=== PATIENT | male | born 1935 | race Caucasian/White ===

== ENCOUNTER 2016-07-03 22:11 | Inpatient (IN) | payer MEDICARE, OTHER ==
[~2016-07-03] VITALS: Ht 185.4 cm; Wt 116.4 kg
[~2016-07-03 22:11] MED LIST changes: -ASP81TEC PO; -DICL100G26 TP; -MULT-90 PO
[2016-07-03] MEDS ORDERED: ALBUTEROL/IPRATROPIUM 3MG-0.5MG/3ML (DUONEB) NEB VIAL INH ONE (22:45)
[2016-07-03] MEDS ORDERED: methylPREDNISolone 125 MG (Solu-MEDROL) VIAL IV ONE (22:45)
[2016-07-03 23:22] LABS: MEAN CORPUSCULAR HEMOGLOBIN 28.1 PG (26.0-34.0); MEAN CORPUSCULAR HGB CONC 33.9 g/dL (31.0-37.0); MEAN CORPUSCULAR VOLUME 83 FL (80-100); MEAN PLATELET VOLUME 9.7 FL (6.0-9.5); PLATELET COUNT 207 10^3uL (150-450); WHITE BLOOD COUNT 20.72 10^3uL (4.0-11.0)
[2016-07-03 23:32] LABS: ALBUMIN 3.9 g/dL (3.4-5.0); ANION GAP 15.8 MEQ/L (3-15); CALCULATED IONIZED CALCIUM 4.1 mg/dL (3.8-4.6); TOTAL PROTEIN 6.9 g/dL (6.4-8.5)
[2016-07-04] LABS: BAND NEUTROPHILS % 2 % (0-6); MONOCYTES # 1.2 #; MONOCYTES % 6 % (3-11); SEGMENTED NEUTROPHILS % 87 % (51-67); TOTAL CELLS COUNTED 100
[2016-07-04] MEDS ORDERED: VANCOMYCIN 1,000 MG in SODIUM CHLORIDE 250 ML IV ONE (00:15)
[2016-07-04] MEDS ORDERED: PIPERACILLIN/TAZOBACTAM 3.375 GM in SODIUM CHLORIDE 50 ML IV ONE (00:15)
--- NOTE | 2016-07-04 01:35 | History and Physical (E) ---
History & Physical PCP: Carlos Franz MD CC HAP HPI Mr. Romo is a 80 year old male who presents to the ED by EMS for shortness of air and cough. He has known COPD and is oxygen dependent at home. He was admitted to the hospital on the 06.21 for pneumonia and COPD exacerbation. He was treated with Zosyn and discharged to home on Augmentin, which the patient states he has taken. During the day of 07.03.16, the patient began having increased shortness of air and coughing. He did some breathing treatments at home however these did not help. He contacted EMS to transport him to the hospital. In the ED, he received more breathing treatments but continued to require increasing oxygen to maintain his oxygen saturations. He was found to have an elevated troponin, which has been persistently elevated since his last admission. He does endorse chest pain, however it is related to his cough. His EKG has no changes noted on it. Admission was requested. Upon arrival to his room the patient, PMH Severe COPD on two liters of oxygen at home (arformoterol, budesonide, duonebs, and prednisone) CAD (ehs teacher is Dr. Manuela Rivera.) with UT x 2 (isosorbide mononitrate, ASA, atorvastatin, carvedilol, prasugrel and furosemide). Chronic systolic CHF (furosemide, losartan, and carvedilol). HTN (losartan, carvedilol, and doxazosin) HLD (atorvastatin) GERD Urinary hesitancy Diabetes Mellitus Type II (insulin Chronic angina (isosorbide) PSH Stent x 2, 2000 and x 1, 2013 Bilateral knee replacement Right shoulder reconstruction Repaired left Achilles tendon Umbilical hernia repair Tonsillectomy ALLERGIES: NKDA Please see list at end of report. HOME MEDICATIONS: Amoxicillin/Potassium Clav 875 MG PO Q12HR Arformoterol 15 MCG IH BID Ascorbic Acid 1,000 MG PO DAILY Aspirin 81 MG PO DAILY Atorvastatin 40 MG PO DAILY Budesonide 0.5 MG INH BID Calcium Carbonate/Vitamin D3 1 TAB PO DAILY Carvedilol 12.5 MG PO BID WITH MEALS Doxazosin 2 MG PO HS Furosemide 40 MG PO DAILY Levemir 37 UNIT SQ HS Insulin Lispro 25 UNIT SC BID@BKFT&NOON and 20 UNITS AT SUPPER Isosorbide Mononitrate 30 MG PO DAILY Losartan 25 MG PO DAILY Metformin 500 MG PO BID WITH MEALS Multivitamin 1 TAB PO DAILY Omeprazole 40 MG PO DAILY Prasugrel 10 MG PO Q48H Prednisone 10 MG PO DAILY Ranolazine 100 MG PO BID Roflumilast 500 MCG PO DAILY Albuterol/Ipratropium 3 ML INH QID PRN DYSPNEA Nitroglycerin 0.4 MG SL Q5M PRN CHEST PAIN Pramipexole 1 MG PO HS PRN restless leg Please see list at end of report. FH Parents--Mom at 84 after falling and breaking her hip. She had Guillain- [place]. Father was 84 and of prostate cancer, diabetes. Siblings--Sister of ovarian cancer. Brother had COPD and heart disease. He after attempt to replace a heart valve. SOCIAL HISTORY Lives with is outside of [place]. 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 Has a daughter in and one in [place]. Quit smoking in 1991. Quit alcohol in 1985. No history of drug abuse. ROS CONSTITUTION: Intentional weight loss over last year. Denies fever or chills. HEENT: No change in vision or hearing. No sores in mouth, sore throat. CV: Endorsing some chest pains with coughing. PULM: Endorsing cough and dyspnea. GI: No upset stomach, nausea, vomiting, constipation, or diarrhea. No blood in stool. : No dysuria. No blood in urine. MS: No new muscle or joint aches and pains. NEURO: No numbness or tingling. No weakness. INTEG: No rashes, lesions, or sores. ENDO: No heat or cold intolerance. No polydipsia or polyuria. HEME/LYMPH: No easy bruising or bleeding. No swollen glands. PSYCH: No change in mood or behavior. OBJECTIVE Vital Signs Date Time Temp Pulse Resp B/P Pulse Ox O2 Delivery O2 Flow Rate FiO2 07/03/16 23:03 100.2 111 20 125/63 91 Simple Mask 6 GEN: Awake and alert. No distress. HEENT: Normocephalic. MMM in oral cavity. NC in place. CV: RRR. NSR on telemetry. Peripheral pulses present. LUNGS: Crackles in left base. Nonlabored respirations. ABD: Normal bowel sounds. S/ND/NTTP. EXTR: No lower extremity edema. INTEG: W/D/I. LABS CBC BMP Last 24 Hrs 07/03/16 22:58 Laboratory Results Past 24 Hrs 07/03/16 22:58: Absolute Band Neutrophils 0.4, Alanine Aminotransferase (ALT/SGPT) 44, Albumin 3.9, Albumin/Globulin Ratio 1.300, Alkaline Phosphatase 68, Anion Gap 15.8, Aspartate Amino Transf (AST/SGOT) 38, BUN/Creatinine Ratio 25, Band Neutrophils % 2, Basophils # (Auto) , Basophils (%) (Auto) , Blood Morphology Comment [ Pending], Blood Urea Nitrogen 31, Calcium Level 9.2, Calcium/Ionized Calcium Ratio 4.1, Calculated Osmolality 276, Carbon Dioxide Level 26, Chloride Level 100, Creatine Kinase MB 2.1, Creatinine 1.23, Differential Total Cells Counted 100, Eosinophils # (Auto) , Eosinophils (%) (Auto) , Estimat Glomerular Filtration Rate 68.9, Estimated GFR (Non- 56.9, Glucose Level 141, Hematocrit 36.60, Hemoglobin 12.4, Lymphocytes # 1.0, Lymphocytes # (Auto) , Lymphocytes % (Manual) 5, Lymphocytes (%) (Auto) , Mean Corpuscular Hemoglobin 28.1, Mean Corpuscular Hemoglobin Concent 33.9, Mean Corpuscular Volume 83, Mean Platelet Volume 9.7, Monocytes # 1.2, Monocytes # (Auto) , Monocytes % (Manual) 6, Monocytes (%) (Auto) , Neutrophils # 18.0, Neutrophils # (Auto) , Neutrophils (%) (Auto) , Platelet Count 207, Potassium Level 4.2, Red Blood Count 4.41, Red Cell Distribution Width 14.9, Segmented Neutrophils % 87, Sodium Level 138, Total Bilirubin 0.9, Total Creatine Kinase 40, Total Protein 6.9, Troponin I 0.205, White Blood Count 20.72 MICRO BC pending. IMAGING 07.03.16 CXR Pending formal read. ASSESSMENT/PLAN Sepsis Secondary to HAP. Patient has a known history of heart failure. Will give gentle hydration and monitor closely. Acute on chronic hypoxic respiratory failure Continue oxygen per protocol. Wean as tolerated to home dose. HAP Evidenced by CXR, leukocytosis, hypoxia, and cough. BC's pending. SC pending. Zosyn and Vancomycin in ED. Monitor cultures. Patient was recently treated with augmentin. Will provide levofloxacin and vancomycin while here, given progression of symptoms despite augmentin tx. Elevated troponin No changes in EKG. No chest pain. Attributing to sepsis. Will monitor with tele and transfer if patient becomes unstable. GERD Continue home pantoprazole. HTN Holding home carvedilol and doxazosin until no longer meeting SIRS criteria. Chronic Systolic CHF Holding home carvedilol, isosorbide mononitrate, and losartan per above. HLD Continue home atorvastatin. Diabetes Mellitus Type II Holding metformin, until no longer meeting SIRS criteria. Monitor accu cheks. Provide sliding scale and insulin per home dose. Restless leg Continued home pramipexole. Angina Resume ranolazine at discharge. FEN Diabetic diet provided. Electrolytes normal. Fluids--NS at 100/hr x 1 liter. DVT proph Enoxaparin. Code status Full code. Dispo Inpatient. Abx per above, continue to provide oxygen per protocol. Monitor sugars. Re-evaluate in the morning. Allergies/Home Medications Allergies: Coded Allergies: No Known Drug Allergies (Unverified , 06/21/16) Reported Home Medications Scheduled Arformoterol Tartrate (Brovana) 15 MCG IH BID (Reported) Ascorbic Acid (Vitamin C) 1,000 MG PO DAILY (Reported) Aspirin (Baby Aspirin) 81 MG PO DAILY (Reported) Atorvastatin (Lipitor) 40 MG PO DAILY (Reported) Budesonide (Pulmicort) 0.5 MG INH BID (Reported) Calcium Carbonate/Vitamin D3 (Calcium 600 + Vit D 200 Tablet) 1 TAB PO DAILY ( Reported) Carvedilol (Carvedilol) 12.5 MG PO BID WITH MEALS (Reported) Doxazosin Mesylate (Doxazosin Mesylate) 2 MG PO HS (Reported) Furosemide (Lasix) 40 MG PO DAILY (Reported) Insulin Detemir (Levemir) 37 UNIT SQ HS (Reported) Insulin Lispro (Insulin Humalog) 25 UNIT SC BID@BKFT&NOON (Reported) Insulin Lispro (Humalog) 17 UNIT SC SUPPER (Reported) Isosorbide Mononitrate (Isosorbide Mononitrate ER) 30 MG PO DAILY (Reported) Multivitamin (Multi-Day Vitamins) 1 TAB PO DAILY (Reported) Omeprazole (Omeprazole) 40 MG PO DAILY (Reported) Prednisone (Deltasone) 10 MG PO DAILY (Reported) Ranolazine (Ranexa) 100 MG PO BID (Reported) Roflumilast (Daliresp) 500 MCG PO DAILY (Reported) Scheduled PRN Albuterol/Ipratropium (Duoneb 3mg-0.5mg/3ml) 3 ML INH QID PRN PRN DYSPNEA ( Reported) Pramipexole Di-HCl (Mirapex) 1 MG PO HS PRN PRN restless leg (Reported) Discontinued Medications Amoxicillin/Potassium Clav (Amox Tr-K Clv 875-125 mg Tab) 875 MG PO Q12HR Discontinued Reason: No longer required Losartan Potassium (Losartan Potassium) 25 MG PO DAILY (Reported) Discontinued Reason: No longer required Metformin HCl (Metformin HCl) 500 MG PO BID WITH MEALS (Reported) Discontinued Reason: No longer required Nitroglycerin (Nitroglycerin) 0.4 MG SL Q5M PRN PRN CHEST PAIN (Reported) Discontinued Reason: No longer required Prasugrel HCl (Effient) 10 MG PO Q48H (Reported) Discontinued Reason: No longer required Copies to: End of Report . MELA HUTCHINSON MD Jul 04, 2016 01:35
--- NOTE | 2016-07-04 01:35 | NUR ---
Patient arrived to unit via cart accompanied by ED RN, admitted to room 345 with O2 @ 5L / nc. Awake alert and oriented, pleasant talking, removes bottom half of clothing and suspenders. Admission process continues
[2016-07-04 01:42] VITALS: BP 110/59
[2016-07-04 01:50] VITALS: BP 110/59
[2016-07-04] MEDS ORDERED: DEXTROSE 50% 25 GM/50 ML SYRINGE IV PRN (01:50)
[2016-07-04] MEDS ORDERED: DEXTROSE ORAL GEL (GLUTOSE 40%) 15 GM TUBE PO PRN (01:50)
[2016-07-04] MEDS ORDERED: ONDANSETRON 2 MG/ML (Z0FRAN) 2 ML VIAL IV PRN (01:50)
[2016-07-04] MEDS ORDERED: GLUCAGON EMERGENCY 1 MG/KIT IM PRN (01:50)
[2016-07-04] MEDS ORDERED: ACETAMINOPHEN 325 MG TAB (TYLENOL) PO PRN (01:50)
[2016-07-04] MEDS ORDERED: LEVOFLOXACIN 750 MG/150 ML IV 150 ML IV SCH (01:55)
--- NOTE | 2016-07-04 02:00 | NUR ---
O2 to 4 L/nc SPO2 94%, Dr. Champagne in room to see patient.
--- NOTE | 2016-07-04 02:03 | NUR ---
Pt arrived from ED on 4 l/min NC, SPO2 93%.
[2016-07-04] MEDS ORDERED: ALBUTEROL 0.083% NEB SOLUTION 2.5 MG/3 ML VIAL INH PRN (02:25)
[2016-07-04 03:00] VITALS: BP 123/66
[2016-07-04] MEDS: morphine INJ 2 MG/ML 1 ML SYRINGE IV PRN ×2 (03:20→09:32)
--- NOTE | 2016-07-04 03:26 | NUR ---
Patient C/O chest pressure to mid sternal area. Pain rated at 4/10. Pt denies increase in pain with deep breaths or coughing. Physician notified and order received for Morphine 2 mg IV Q 2 hours PRN. Dose given 0325.
[2016-07-04] MEDS ORDERED: ALBUTEROL/IPRATROPIUM 3MG-0.5MG/3ML (DUONEB) NEB VIAL INH SCH (05:00)
[2016-07-04 06:25] LABS: RBC MORPH NORMAL (NORMAL)
[2016-07-04 06:41] LABS: ALBUMIN 3.6 g/dL (3.4-5.0); ANION GAP 15.5 MEQ/L (3-15); MAGNESIUM* 2.3 mg/dL (1.6-2.3); PHOSPHORUS 4.3 mg/dL (2.4-4.9)
[2016-07-04 06:46] LABS: MEAN CORPUSCULAR HEMOGLOBIN 27.9 PG (26.0-34.0); MEAN CORPUSCULAR HGB CONC 32.9 g/dL (31.0-37.0); MEAN CORPUSCULAR VOLUME 85 FL (80-100); PLATELET COUNT 194 10^3uL (150-450); WHITE BLOOD COUNT 15.46 10^3uL (4.0-11.0)
--- NOTE | 2016-07-04 07:20 | NUR ---
Report received from Aquiles AMADOR and care assumed. Pt is sleeping at this time.
[2016-07-04] MEDS: INSULIN LISPRO 1 UNIT/0.01 ML (HUMALOG) DOSE SC SCH ×2 (07:23→11:40)
--- NOTE | 2016-07-04 07:31 | Diagnostic Imaging Report ---
INDICATION: Shortness of air. TECHNIQUE: Single view chest 11:10 PM. CORRELATION STUDY: 06/21/2016 FINDINGS: Heart size, mediastinum and vasculature overall relatively stable. Central pulmonary arteries are prominent. There has been improvement of the left lung infiltrate. There is minimal atelectasis or perhaps scarring about the left lung base. There is, however, suspect for new infiltrate in the right lung base medially likely in the middle lobe. Asymmetric areas of density about the lung apices overall stable. Likely prior surgical change of the distal right clavicle along with right humeral head. IMPRESSION: 1. Developing infiltrate right lung base likely middle lobe. Improvement in the previously noted infiltrate left lung base. Dictated by: Dictated on workstation # [id number]
[2016-07-04 07:35] LABS: BAND NEUTROPHILS % 0 % (0-6); EOSINOPHILS % 0 % (0-4); LYMPHOCYTES # 0.6 #; MONOCYTES # 0.2 #; MONOCYTES % 1 % (3-11); RBC MORPH NORMAL (NORMAL); SEGMENTED NEUTROPHILS % 94 % (51-67); TOTAL CELLS COUNTED 100
[2016-07-04 07:55] VITALS: BP 114/62
--- NOTE | 2016-07-04 08:00 | NUR ---
Pt awake and assessment completed. Pt sitting on side of bed, breakfast into room. Monitor on showing SR at this time. IV of NS infusing at 100cc/hr. Denies pain at present. IV site patent in R hand, without redness or edema.
[2016-07-04] MEDS ORDERED: VANCOMYCIN 1,000 MG in SODIUM CHLORIDE 250 ML IV SCH (09:00)
[2016-07-04] MEDS ORDERED: ENOXAPARIN 40 MG/0.4 ML (LOVENOX) SYR SC SCH (09:00)
--- NOTE | 2016-07-04 09:25 | NUR ---
Pt up to toilet, had med BM and voided. Returned to bed and SOA and c/o chest pain. No changes noted on monitor, O2 sat 95%, rate is elevated at 116, BP 161/87. MS 2mg IV given for c/o pain 12/07. Pt watching TV at present.
--- NOTE | 2016-07-04 09:45 | NUR ---
Dr Champagne present to examine pt. New orders received for lab work. Will continue to monitor closely.
[2016-07-04 10:00] VITALS: BP 161/87
--- NOTE | 2016-07-04 10:53 | NUR ---
Lab work results back, EKG being obtained.
[2016-07-04] MEDS ORDERED: METF500T4 PO (11:41)
[2016-07-04] MEDS ORDERED: MULT-90 PO (11:41)
[2016-07-04] MEDS ORDERED: PRAS10TA6 PO (11:41)
[2016-07-04] MEDS ORDERED: NITR0.4T7 SL (11:41)
[2016-07-04] MEDS ORDERED: NFLOSA25TA PO (11:41)
[2016-07-04] MEDS ORDERED: ASP81TEC PO (11:41)
[2016-07-04] MEDS ORDERED: DICL100G26 TP (11:41)
--- NOTE | 2016-07-04 11:43 | NUR ---
Accu check results 283mg/dl, 5 units humalog given per SSI. Pt sitting up in bed waiting for lunch. Denies pain at present. Instructed pt that lab needed another sputum specimen.
--- NOTE | 2016-07-04 12:13 | NUR ---
Pharmacy Dosed Vanco S: HCAP O: 80 y/o M 73in 94.5 kg (adjusted from 116.4) SCr 1.31 A/P: Start emperic Levaquin 750mg daily and Vanco 1g q12h with a predicted trough of 19.8mg/L to be drawn 07/05/16@2029 Addendum: 07/04/16 at 1219 by Sadaf Rosales PHARM Med Rec completed by pharmacy informatics specialist via conversation with patient, med list and ext med hx.
[2016-07-04] MEDS ORDERED: NS FLUSH 10 ML PRN IV (12:20)
[2016-07-04] MEDS ORDERED: NS FLUSH 3 ML PRN IV (12:20)
--- NOTE | 2016-07-04 13:14 | Discharge Instructions (E) ---
Discharge Instructions Instructions Transferring to [facility] MELA HUTCHINSON MD Jul 04, 2016 13:14
--- NOTE | 2016-07-04 13:14 | Discharge Summary (E) ---
Discharge Summary (A) Admit Date/Time Jul 04, 2016 at 00:59 Discharge Date/Time Jul 04, 2016 Admitting Provider Jennifer Champagne MD Primary Care Provider Carlos Franz MD Attending Provider Jennifer Champagne MD Consulting Provider Admission Diagnosis Sepsis Acute on chronic hypoxic respiratory failure HAP Elevated troponin History and Present Illness Mr. Romo is a 80 year old male who presents to the ED by EMS for shortness of air and cough. He has known COPD and is oxygen dependent at home. He was admitted to the hospital on the 06.21 for pneumonia and COPD exacerbation. He was treated with Zosyn and discharged to home on Augmentin, which the patient states he has taken. During the day of 07.03.16, the patient began having increased shortness of air and coughing. He did some breathing treatments at home however these did not help. He contacted EMS to transport him to the hospital. In the ED, he received more breathing treatments but continued to require increasing oxygen to maintain his oxygen saturations. He was found to have an elevated troponin, which has been persistently elevated since his last admission. He does endorse chest pain, however it is related to his cough. His EKG has no changes noted on it. Admission was requested. Upon arrival to his room the patient, the patient was in stable condition. Reporting intermittent chest pain. Hospital Course and Treatment Sepsis Secondary to HAP. Patient has a known history of heart failure. NS given 100ml/hr x 1 liter. Acute on chronic hypoxic respiratory failure Home oxygen use is 2L NC continuously. Continue oxygen per protocol. Wean as tolerated to home dose. HAP Evidenced by CXR, leukocytosis, hypoxia, and cough. BC's pending. SC pending. Zosyn and Vancomycin in ED. Patient was recently treated with augmentin, therefore changed to levofloxacin and vancomycin on admission, given progression of symptoms despite augmentin tx. Elevating troponin No changes in EKG. Intermittent chest pain. Initially attributed to sepsis. 0.205-->1.010-->2.840 at noon on 07.04.16. Monitored tele (NSR), transferring to [facility] after discussing with Dr. Jenkins given troponin trend. GERD Continued home pantoprazole. HTN Held home carvedilol and doxazosin due to meeting SIRS criteria. Chronic Systolic CHF Held home carvedilol, isosorbide mononitrate, and losartan per above. HLD Continued home atorvastatin. Diabetes Mellitus Type II Held metformin, until no longer meeting SIRS criteria. Monitor accu cheks. Provide sliding scale and insulin per home dose. Restless leg Continued home pramipexole. Angina Resume ranolazine at discharge to home. FEN Diabetic diet provided. Electrolytes normal. Fluids--NS at 100/hr x 1 liter. DVT proph Enoxaparin. Code status Full code. Dispo Inpatient for above mentioned issues. Will transfer to [facility] under the care of Dr. Jenkins. Discharge Physicial Exam GEN: Awake and alert. No distress. HEENT: Normocephalic. MMM in oral cavity. NC in place. CV: RRR. NSR on telemetry. Peripheral pulses present. LUNGS: CTA B. NLR's. ABD: Normal bowel sounds. S/ND/NTTP. EXTR: No lower extremity edema. INTEG: W/D/I. Radiology/Laboratory Data Laboratory Results Past 24 Hrs 07/03/16 22:58: Absolute Band Neutrophils 0.4, Alanine Aminotransferase (ALT/SGPT) 44, Albumin 3.9, Albumin/Globulin Ratio 1.300, Alkaline Phosphatase 68, Anion Gap 15.8, Aspartate Amino Transf (AST/SGOT) 38, BUN/Creatinine Ratio 25, Band Neutrophils % 2, Basophils # (Auto) , Basophils (%) (Auto) , Blood Morphology Comment Normal , Blood Urea Nitrogen 31, Calcium Level 9.2, Calcium/Ionized Calcium Ratio 4.1, Calculated Osmolality 276, Carbon Dioxide Level 26, Chloride Level 100, Creatine Kinase MB 2.1, Creatinine 1.23, Differential Total Cells Counted 100, Eosinophils # (Auto) , Eosinophils (%) (Auto) , Estimat Glomerular Filtration Rate 68.9, Estimated GFR (Non- 56.9, Glucose Level 141, Hematocrit 36.60, Hemoglobin 12.4, Lymphocytes # 1.0, Lymphocytes # (Auto) , Lymphocytes % (Manual) 5, Lymphocytes (%) (Auto) , Mean Corpuscular Hemoglobin 28.1, Mean Corpuscular Hemoglobin Concent 33.9, Mean Corpuscular Volume 83, Mean Platelet Volume 9.7, Monocytes # 1.2, Monocytes # (Auto) , Monocytes % ( Manual) 6, Monocytes (%) (Auto) , Neutrophils # 18.0, Neutrophils # (Auto) , Neutrophils (%) (Auto) , Platelet Count 207, Potassium Level 4.2, Red Blood Count 4.41, Red Cell Distribution Width 14.9, Segmented Neutrophils % 87, Sodium Level 138, Total Bilirubin 0.9, Total Creatine Kinase 40, Total Protein 6.9, Troponin I 0.205, White Blood Count 20.72 07/04/16 06:05: Absolute Band Neutrophils 0.0, Albumin 3.6, Anion Gap 15.5, Band Neutrophils % 0 , Basophils # (Auto) , Basophils (%) (Auto) , Blood Morphology Comment Normal, Blood Urea Nitrogen 30, Calcium Level 9.1, Carbon Dioxide Level 27, Chloride Level 103, Creatinine 1.31, Differential Total Cells Counted 100, Eosinophils # (Auto) , Eosinophils (%) (Auto) , Estimat Glomerular Filtration Rate 64.0, Estimated GFR (Non- 52.9, Glucose Level 343, Hematocrit 36.20, Hemoglobin 11.9, Lymphocytes # 0.6, Lymphocytes # (Auto) , Lymphocytes % (Manual ) 4, Lymphocytes (%) (Auto) , Mean Corpuscular Hemoglobin 27.9, Mean Corpuscular Hemoglobin Concent 32.9, Mean Corpuscular Volume 85, Mean Platelet Volume 10.0, Monocytes # 0.2, Monocytes # (Auto) , Monocytes % (Manual) 1, Monocytes (%) (Auto) , Neutrophils # 14.5, Neutrophils # (Auto) , Neutrophils (% ) (Auto) , Platelet Count 194, Potassium Level 5.4, Red Blood Count 4.26, Red Cell Distribution Width 14.9, Segmented Neutrophils % 94, Sodium Level 141, Troponin I 1.010, White Blood Count 15.46, Atypical Lymphocytes 1, Basophils # ( Manual) 0.0, Basophils % (Manual) 0, Eosinophils # 0.0, Eosinophils % (Manual) 0 , Magnesium Level 2.3, Phosphorus Level 4.3 07/04/16 12:02: Troponin I 2.840 IMAGING 1.4.17 CXR Pending formal read. Discharge Provider's Instructions Transferring to [facility] Discharge Medications Continued Medications: Albuterol/Ipratropium (Duoneb 3mg-0.5mg/3ml) 3 Ml Nebu 3 ML INH QID Arformoterol Tartrate (Brovana) 15 Mcg/2 Ml Nebu 15 MCG IH BID VIAL Ascorbic Acid (Vitamin C) 1,000 Mg Tablet 1000 MG PO DAILY TAB Aspirin (Ecotrin) 81 Mg Tablet.dr 81 MG PO DAILY TAB Atorvastatin (Lipitor) 40 Mg Tablet 40 MG PO DAILY Ref 0 TAB Budesonide (Pulmicort) 0.25 Mg/Ml Nebu 0.5 MG INH BID Calcium Carbonate/Vitamin D3 (Calcium 600 + Vit D 200 Tablet) 1 Each Tablet 1 TAB PO DAILY TAB Carvedilol (Carvedilol) 12.5 Mg Tablet 12.5 MG PO BID WITH MEALS Diclofenac Sodium (Diclofenac Sodium) 100 Gm Gel..gram. 10 GM TP DAILY PRN PAIN Doxazosin Mesylate (Doxazosin Mesylate) 2 Mg Tablet 2 MG PO HS TAB Furosemide (Lasix) 40 Mg Tab 40 MG PO DAILY TAB Insulin Detemir (Levemir) 100 Unit/1 Ml Insuln.pen 37 UNIT SQ HS Insulin Lispro (Insulin Humalog) 100 Unit/1 Ml Susp 25 UNIT SC BID@BKFT&NOON Insulin Lispro (Humalog) 100 Unit/1 Ml Vial 17 UNIT SC SUPPER VIAL Isosorbide Mononitrate (Isosorbide Mononitrate ER) 30 Mg Tab.er.24h 30 MG PO DAILY #90 Losartan Potassium (Losartan Potassium) 25 Mg Tablet 25 MG PO DAILY TAB Metformin HCl (Metformin HCl) 500 Mg Tablet 500 MG PO BID WITH MEALS TAB Multivits W-Fe,Other Min (Central Lm For Seniors) 1 Each Tablet 1 EACH PO DAILY TAB Nitroglycerin (Nitroglycerin) 0.4 Mg Tab.subl 0.4 MG SL DAILY PRN chest tightness TAB Omeprazole (Omeprazole) 20 Mg Capsule.dr 40 MG PO DAILY Pramipexole Di-HCl (Mirapex) 1 Mg Tablet 1 MG PO HS PRN restless leg Prasugrel HCl (Effient) 10 Mg Tablet 10 MG PO 3 times a week TAB Prednisone (Deltasone) 10 Mg Tab 10 MG PO DAILY TAB Ranolazine (Ranexa) 1,000 Mg Tab.er.12h 1000 MG PO BID Roflumilast (Daliresp) 500 Mcg Tablet 500 MCG PO DAILY COPD Discharge Diagnosis Sepsis Acute on chronic hypoxic respiratory failure HAP Elevated troponin Copies to: Additional Provider: Vishal Jenkins; [place],Bebeto Roy End of Report . JENNIFER CHAMPAGNE MD Jul 04, 2016 13:14
[2016-07-04 13:22] VITALS: BP 136/67
--- NOTE | 2016-07-04 13:28 | NUR ---
Pt ate lunch, denies chest pain at present. Recent lab shows an elevation in troponin, Dr Champagne present to explain the need for transfer to pt and .
--- NOTE | 2016-07-04 15:00 | NUR ---
[facility] present and report given to personnel. Pt transferred to [facility]. is going to follow the ambulance to [place]. Pt left the unit per EMS. Report given to Manuela AMADOR from [place].
[2016-07-05] MEDS ORDERED: NS FLUSH 3 ML DAILY IV SCH (09:00)
== END 2016-07-04 15:00 | disposition short-term general hospital (02) | DRG 871 ==
LOC: ED 22:13 → ICU 07-04 00:59
PROVIDERS: ADMIT Family Medicine; ATTEND Family Medicine
DX: A41.9 Sepsis, unspecified organism (principal); J18.9 Pneumonia, unspecified organism; J96.21 Acute and chronic respiratory failure with hypoxia; J44.0 Chronic obstructive pulmonary disease with (acute) lower respiratory infection; I50.22 Chronic systolic (congestive) heart failure; I25.118 Atherosclerotic heart disease of native coronary artery with other forms of angina pectoris; I11.0 Hypertensive heart disease with heart failure; E11.9 Type 2 diabetes mellitus without complications; Z99.81 Dependence on supplemental oxygen; I25.2 Old myocardial infarction; Z95.5 Presence of coronary angioplasty implant and graft
CPT/HCPCS: 36415; 71010; 80053; 80069; 82550; 82553; 83735; 84484; 85025; 87040; 87205; 93005; 93010; 94640; 96365; 96375; 99282; 99285

== ENCOUNTER → 2016-07-03 | Outpatient (CLI) | payer MEDICARE, OTHER ==
[~2016-07-03] MED LIST: AMOX1TAB12 PO; ARFO15VI IH; ASCO10006 PO; ASCO100083 PO; ASP81CT PO; ASP81TEC PO; ATOR40TA2 PO; BDS2MA INH; BUDE10.2 IH; CALC-140 PO; CALC-6 PO; CALC600T12 PO; CARV12.5 PO; DICL100G26 TP; DXZS2T PO; FRSM40T PO; INSU100I30 SQ; INSU100I9 SC; INSU100V2 SC; INSU100V2 SQ; IPRA3AMP11 INH; ISM30TCR PO; METF500T4 PO; MULT-1034 PO; MULT-301 PO; MULT-90 PO; NFLOSA25TA PO; NITR0.4T7 SL; OMEP20CA12 PO; OMEP40CA36 PO; PRAM1TAB2 PO; PRAS10TA6 PO; PRD10T PO; RANO10003 PO; ROFL500T PO; ROSU20TA PO; SPIR1TAB3 PO; SPIR25TA PO; TAMS0.4C2 PO; TIOT18CA IH
== END ==
LOC: EMS 22:03
PROVIDERS: ATTEND Family Medicine
DX: R06.02 Shortness of breath (principal)
CPT/HCPCS: 94640

== ENCOUNTER → 2016-07-04 | Outpatient (CLI) | payer MEDICARE, OTHER ==
[~2016-07-04] MED LIST changes: +ASP81TEC PO; +DICL100G26 TP; +MULT-90 PO
== END ==
LOC: EMS 14:50
PROVIDERS: ATTEND Family Medicine
DX: A41.9 Sepsis, unspecified organism (principal); J18.9 Pneumonia, unspecified organism; I50.9 Heart failure, unspecified

== ENCOUNTER 2016-07-23 06:47 | Emergency (ER) | payer MEDICARE, OTHER ==
[~2016-07-23] VITALS: Ht 185.4 cm; Wt 111.0 kg
[2016-07-23 07:14] LABS: BASOPHILS % (AUTO) 0 % (0-2); EOSINOPHILS # (AUTO) 0.1 10^3uL; EOSINOPHILS % (AUTO) 1 % (0-4); LYMPHOCYTES # (AUTO) 1.4 X10^3; MEAN CORPUSCULAR HEMOGLOBIN 28.5 PG (26.0-34.0); MEAN CORPUSCULAR HGB CONC 32.8 g/dL (31.0-37.0); MEAN CORPUSCULAR VOLUME 87 FL (80-100); MEAN PLATELET VOLUME 9.9 FL (6.0-9.5); MONOCYTES % (AUTO) 12 % (3-11); NEUTROPHILS # (AUTO) 6.1 X10^3; NEUTROPHILS % (AUTO) 70 % (51-67); PLATELET COUNT 252 10^3uL (150-450); WHITE BLOOD COUNT 8.73 10^3uL (4.0-11.0)
[2016-07-23 07:27] LABS: ALBUMIN 4.2 g/dL (3.4-5.0); ANION GAP 17.4 MEQ/L (3-15); CALCULATED IONIZED CALCIUM 3.9 mg/dL (3.8-4.6); TOTAL PROTEIN 7.7 g/dL (6.4-8.5)
--- NOTE | 2016-07-23 07:53 | NUR ---
Patient reports feeling "fluttering" of heart. Denies chest pain. PVCs noted on monitor.
--- NOTE | 2016-07-23 09:38 | NUR ---
Dr. Mendoza on phone with Dr. Rivera regarding second troponin result
--- NOTE | 2016-07-23 09:39 | NUR ---
Dr. Mendoza consults with Dr. Rivera.
[2016-07-23 10:00] VITALS: BP 112/66
== END 2016-07-23 10:02 | disposition home or self-care (01) ==
LOC: EDUNIT# 06:47 → ED 06:48
DX: I20.8 Other forms of angina pectoris (principal); I25.118 Atherosclerotic heart disease of native coronary artery with other forms of angina pectoris; I11.0 Hypertensive heart disease with heart failure; I50.9 Heart failure, unspecified; Z95.5 Presence of coronary angioplasty implant and graft; Z87.891 Personal history of nicotine dependence; J44.9 Chronic obstructive pulmonary disease, unspecified
CPT/HCPCS: 36415; 71010; 80053; 82550; 82553; 83880; 84484; 85025; 93005; 93010; 99284

== ENCOUNTER → 2016-07-23 | Outpatient (CLI) | payer MEDICARE, OTHER | LOC: EMS 06:33 | PROVIDERS: ATTEND Emergency Medicine | DX: R07.89 Other chest pain (principal) ==

== ENCOUNTER → 2016-08-05 | Outpatient (CLI) | payer MEDICARE, OTHER ==
[2016-08-05 12:32] LABS: ANION GAP 18.1 MEQ/L (3-15)
== END ==
LOC: LAB 11:50
PROVIDERS: ATTEND Family Medicine
DX: R05 Cough (principal); J96.20 Acute and chronic respiratory failure, unspecified whether with hypoxia or hypercapnia
CPT/HCPCS: 36415; 71020; 80048

== ENCOUNTER → 2016-08-09 | Outpatient (REF) | payer MEDICARE, OTHER ==
[2016-08-09 12:25] LABS: ANION GAP 14.6 MEQ/L (3-15)
== END ==
LOC: LAB 11:11
PROVIDERS: ATTEND Family Medicine
DX: E11.9 Type 2 diabetes mellitus without complications (principal); R05 Cough
CPT/HCPCS: 80048; 83036; 83880

== ENCOUNTER 2016-08-27 11:40 | Outpatient (RCR) | payer MEDICARE, OTHER ==
[2016-08-27] VITALS (18 sets, daily range): BP systolic 90–116; BP diastolic 41–63
[2016-08-27] MEDS ORDERED: SODIUM CHLORIDE FLUSH 10 ML SYR IV PRN (12:50)
[2016-08-27] MEDS ORDERED: SODIUM CHLORIDE FLUSH 3 ML SYR IV PRN (12:50)
[2016-08-27] MEDS ORDERED: NS 250 ML (IVPB) BAG IV SCH (12:50)
--- NOTE | 2016-08-27 15:15 | NUR ---
A 80 yr old white male admitted to room 341 per W/C accompanied by . Pt is on O2 per N/C at 1 L. Pt is alert and oriented x 4. Pt placed on hospital oxygen at 1L to start. IV started in L hand with 20 g intracath x 1 attempt. Good blood return and flushed easily with 10 cc/NS. IV of NS 250 cc attached to line.
--- NOTE | 2016-08-27 15:33 | NUR ---
1st unit of PRBC #[id number] started per pump and blood tubing.
--- NOTE | 2016-08-27 17:30 | NUR ---
1st unit of blood completed.
--- NOTE | 2016-08-27 17:35 | NUR ---
2nd unit of PRBC started infusing at 125cc/hr. Oxygen at 4 liters per NC.
--- NOTE | 2016-08-27 19:18 | NUR ---
2nd unit PRBCs infusing at 150cc/hr. Pt tolerating well. Resting with eyes closed, dozing off and on. Will continue to monitor.
--- NOTE | 2016-08-27 19:50 | NUR ---
2nd unit PRBCs complete. IV site flushed, then discontinued. PT states he feels fine, didn't expect "this" today. Awaiting [facility] transportation.
--- NOTE | 2016-08-27 20:03 | NUR ---
Pt dismissed to home. Left by wheelchair with [employer] transportation design engineer. No other needs.
== END 2016-08-27 20:03 | disposition home or self-care (01) ==
LOC: ICU 11:40 → LAB 11:40 → EUOP 20:03
PROVIDERS: ATTEND Family Medicine
DX: D64.9 Anemia, unspecified (principal)
CPT/HCPCS: 36415; 36430; 85014; 85018; 86850; 86900; 86901; 86920; J7050; P9016

== ENCOUNTER 2016-08-28 12:11 | Outpatient (RCR) | payer MEDICARE, OTHER ==
[2016-08-28] MEDS ORDERED: SODIUM CHLORIDE FLUSH 3 ML SYR IV PRN (12:29)
[2016-08-28] MEDS ORDERED: NS 250 ML (IVPB) BAG IV SCH (12:29)
[2016-08-28] MEDS ORDERED: SODIUM CHLORIDE FLUSH 10 ML SYR IV PRN (12:29)
--- NOTE | 2016-08-28 13:10 | NUR ---
Pt. has arrived to 341 from lab via WC. Per lab, awaiting to hear back from pathologist regarding transfusion eligibility. Pt. resting on and off, watching TV, easily awakens.
--- NOTE | 2016-08-28 14:10 | NUR ---
Per lab, pt. does not need to receive a transfusion. Pt. notified and has taken him downstairs to wait for [facility] transport per own WC.
== END 2016-11-26 | disposition home or self-care (01) ==
LOC: EUOP 12:11 → ICU 13:19
PROVIDERS: ATTEND Family Medicine
DX: D50.8 Other iron deficiency anemias (principal); I95.89 Other hypotension; M62.81 Muscle weakness (generalized)
CPT/HCPCS: 36415; 85014; 85018

== ENCOUNTER → 2016-09-09 | Outpatient (REF) | payer MEDICARE, OTHER ==
[2016-09-09 12:41] LABS: BASOPHILS % (AUTO) 0 % (0-2); EOSINOPHILS # (AUTO) 0.1 10^3uL; EOSINOPHILS % (AUTO) 1 % (0-4); LYMPHOCYTES # (AUTO) 0.6 X10^3; MEAN PLATELET VOLUME 9.9 FL (6.0-9.5); MONOCYTES # (AUTO) 0.7 X10^3; MONOCYTES % (AUTO) 8 % (3-11); NEUTROPHILS # (AUTO) 7.8 X10^3; NEUTROPHILS % (AUTO) 84 % (51-67); PLATELET COUNT 233 10^3uL (150-450); WHITE BLOOD COUNT 9.28 10^3uL (4.0-11.0)
[2016-09-09 12:49] LABS: MEAN CORPUSCULAR HEMOGLOBIN 23.2 PG (26.0-34.0); MEAN CORPUSCULAR HGB CONC 29.6 g/dL (31.0-37.0); MEAN CORPUSCULAR VOLUME 78 FL (80-100)
[2016-09-09 12:53] LABS: ANION GAP 16.1 MEQ/L (3-15)
== END ==
LOC: LAB 12:10
PROVIDERS: ATTEND Family Medicine
DX: N18.2 Chronic kidney disease, stage 2 (mild) (principal); I50.9 Heart failure, unspecified
CPT/HCPCS: 80048; 85025

== ENCOUNTER → 2016-09-30 | Outpatient (REF) | payer MEDICARE, OTHER ==
[2016-09-30 13:48] LABS: MEAN PLATELET VOLUME 10.5 FL (6.0-9.5); PLATELET COUNT 302 10^3uL (150-450); WHITE BLOOD COUNT 10.46 10^3uL (4.0-11.0)
[2016-09-30 13:52] LABS: MEAN CORPUSCULAR HEMOGLOBIN 23.3 PG (26.0-34.0); MEAN CORPUSCULAR HGB CONC 30.5 g/dL (31.0-37.0); MEAN CORPUSCULAR VOLUME 76 FL (80-100)
[2016-09-30 13:55] LABS: BAND NEUTROPHILS % 3 % (0-6); EOSINOPHILS % 0 % (0-4); LYMPHOCYTES # 0.4 #; MONOCYTES # 0.3 #; MONOCYTES % 3 % (3-11); RBC MORPH NORMAL (NORMAL); SEGMENTED NEUTROPHILS % 90 % (51-67); TOTAL CELLS COUNTED 100
[2016-09-30 14:12] LABS: ALBUMIN 4.1 g/dL (3.4-5.0); ANION GAP 22.2 MEQ/L (3-15); TOTAL PROTEIN 7.4 g/dL (6.4-8.5)
== END ==
LOC: LAB 13:29
PROVIDERS: ATTEND Family Medicine
DX: E10.9 Type 1 diabetes mellitus without complications (principal); I50.32 Chronic diastolic (congestive) heart failure; E78.00 Pure hypercholesterolemia, unspecified
CPT/HCPCS: 80053; 80061; 83036; 83880; 85025

== ENCOUNTER → 2016-11-07 | Outpatient (CLI) | payer MEDICARE, OTHER ==
[2016-11-07 10:01] LABS: BASOPHILS % (AUTO) 0 % (0-2); EOSINOPHILS # (AUTO) 0.1 10^3uL; EOSINOPHILS % (AUTO) 1 % (0-4); LYMPHOCYTES # (AUTO) 0.9 X10^3; MEAN PLATELET VOLUME 9.7 FL (6.0-9.5); MONOCYTES # (AUTO) 0.8 X10^3; MONOCYTES % (AUTO) 7 % (3-11); NEUTROPHILS # (AUTO) 9.5 X10^3; NEUTROPHILS % (AUTO) 84 % (51-67); PLATELET COUNT 234 10^3uL (150-450); WHITE BLOOD COUNT 11.37 10^3uL (4.0-11.0)
[2016-11-07 10:08] LABS: BILIRUBIN,URINE Negative (Negative); CLARITY,URINE Clear; COLOR,URINE Yellow; GLUCOSE, URINE (UA) Negative (Negative); LEUKOCYTE ESTERASE ,URINE Negative (Negative); UROBILINOGEN,URINE 0.2 mg/dL (0.2-1.0)
[2016-11-07 10:12] LABS: ALBUMIN 4.5 g/dL (3.4-5.0); ANION GAP 21.8 MEQ/L (3-15); TOTAL PROTEIN 8.1 g/dL (6.4-8.5)
[2016-11-07 10:14] LABS: MEAN CORPUSCULAR HEMOGLOBIN 23.9 PG (26.0-34.0); MEAN CORPUSCULAR HGB CONC 31.1 g/dL (31.0-37.0); MEAN CORPUSCULAR VOLUME 77 FL (80-100)
--- NOTE | 2016-11-07 13:17 | Diagnostic Imaging Report ---
INDICATION: Shortness of breath and dizziness. History of congestive heart failure, COPD and post cardiac surgery June 2016. TECHNIQUE: Two-view chest at 09:39 a.m. CORRELATION STUDY: 08/05/2016. FINDINGS: Post sternotomy changes are present. Heart size is upper limits of normal. Vasculature is within normal limits. Lung mendez are hyperinflated with changes of COPD. Likely areas of fibrosis are noted. No definitive superimposed infiltrate. Surgical changes to the right humeral head with prosthesis. IMPRESSION: 1. Post sternotomy changes. No evidence for overt failure. Changes of COPD. Dictated by: Dictated on workstation # [id number]
== END ==
LOC: LAB 09:30
PROVIDERS: ATTEND Family Medicine
DX: I50.32 Chronic diastolic (congestive) heart failure (principal); J44.9 Chronic obstructive pulmonary disease, unspecified
CPT/HCPCS: 36415; 71020; 80053; 81003; 83880; 85025

== ENCOUNTER 2016-11-22 10:30 | Outpatient (RCR) | payer MEDICARE, OTHER | END 2016-11-25 14:19 | disposition home or self-care (01) | LOC: CR 10:30 | PROVIDERS: ATTEND Family Medicine | DX: Z95.1 Presence of aortocoronary bypass graft (principal); Z95.4 Presence of other heart-valve replacement | CPT/HCPCS: 93798 ==